=== PATIENT | female | born 1950 | race Caucasian/White ===

== ENCOUNTER 2021-11-24 20:17 | Emergency (ER) | payer MEDICARE, OTHER ==
[~2021-11-24] VITALS: Ht 170.2 cm; Wt 122.5 kg
[2021-11-24 20:21] VITALS: BP_SYST 132
[2021-11-24] MEDS ORDERED: LIDOCAINE 1% 10 MG/ML, 20 ML MDV INJ ONE (21:15)
[2021-11-24] MEDS ORDERED: LIDOCAINE 1%, 20 ML MDV 20 ML ONE (21:20)
[2021-11-24] MEDS ORDERED: BACITRACIN 1 GM OINT TP ONE (21:48)
[2021-11-24 22:12] VITALS: BP_SYST 155
== END 2021-11-24 22:12 | disposition home or self-care (01) ==
LOC: SED 20:17
DX: S01.81XA Laceration without foreign body of other part of head, initial encounter (principal); Z88.2 Allergy status to sulfonamides; Z79.899 Other long term (current) drug therapy; W01.0XXA Fall on same level from slipping, tripping and stumbling without subsequent striking against object, initial encounter; Y93.89 Activity, other specified; Y92.89 Other specified places as the place of occurrence of the external cause; Y99.8 Other external cause status
CPT/HCPCS: 99282; 12011; J2001

== ENCOUNTER 2023-05-31 22:48 | Emergency (ER) | payer OTHER ==
[~2023-05-31] VITALS: Ht 167.6 cm; Wt 90.7 kg
[2023-05-31 22:58] VITALS: BP_SYST 155; PULSE 77; RESP 16; TEMP 98.5; O2SAT 98
[2023-06-01 01:50] VITALS: BP_SYST 155; PULSE 77; RESP 16; TEMP 98.5; O2SAT 98
== END 2023-06-01 01:50 | disposition home or self-care (01) ==
LOC: SED 22:48
DX: S00.03XA Contusion of scalp, initial encounter (principal); F10.90 Alcohol use, unspecified, uncomplicated; Z88.2 Allergy status to sulfonamides; W19.XXXA Unspecified fall, initial encounter; Y93.89 Activity, other specified; Y92.89 Other specified places as the place of occurrence of the external cause; Y99.8 Other external cause status
CPT/HCPCS: 99284; 70450; 36415; 72125; G0482